=== PATIENT | female | born 1960 | race Caucasian/White ===

== ENCOUNTER 2024-02-15 19:16 | Outpatient (REF) | payer OTHER, SELFPAY ==
--- NOTE | ~2024-02-15 | MR_ITS ---
EXAMINATION: MR ANGIOGRAPHY BRAIN WITHOUT CONTRAST CLINICAL INFORMATION: Dizziness and giddiness. COMPARISON: None available. TECHNIQUE: 3D [id number] MR angiography was performed through the brain without the use of intravenous gadolinium. 3D postprocessing including acquisition of multiplanar MIP reformats are obtained at the technologist workstation and utilized for image interpretation. Stenoses are assessed in accordance with NASCET criteria unless otherwise indicated. FINDINGS: Normal flow-related signal within the anterior circulation without evidence of focal stenosis or occlusion of the intradural internal carotid, middle cerebral, or anterior cerebral arteries. Normal flow-related signal within the posterior circulation without evidence of focal stenosis or occlusion of the intradural vertebral, basilar, superior cerebellar, or posterior cerebral arteries. Normal left posterior communicating artery. The right vertebral artery likely terminates as the right posterior inferior cerebellar artery. No demonstrated abnormal arterial structures within the middle/inner ears. No demonstrated intradural aneurysms. No additional significant abnormalities on limited evaluation of the intracranial structures. Moderate leftward nasal septal deviation. MR/MR angio head wo con IMPRESSION: Normal MRA of the head. No demonstrated intracranial aneurysms. Electronically signed by: John Martin DO 02/15/2024 09:50 PM EDT
== END 2024-02-15 19:17 | disposition home or self-care (01) ==
LOC: HO.MRI 19:16
PROVIDERS: PCP Family Medicine; Visit Provider Family Medicine
DX: R42 Dizziness and giddiness (principal)
CPT/HCPCS: 70544